=== PATIENT | male | born 1960 | race Caucasian/White ===

== ENCOUNTER 2020-10-17 19:52 | Inpatient (IN) | payer BC ==
[~2020-10-17] VITALS: Ht 177.8 cm; Wt 95.3 kg
--- NOTE | 2020-10-17 20:22 | NUR ---
assessment made. PA at bedside.
--- NOTE | 2020-10-17 20:23 | NUR ---
patient went to bathroom with steady gait.
[2020-10-17] MEDS ORDERED: OMEP-110 PO (20:30)
[2020-10-17] MEDS ORDERED: METF500T17 PO (20:30)
[2020-10-17] MEDS ORDERED: ENAL20TA9 PO (20:30)
[2020-10-17] MEDS ORDERED: SITA25TA PO (20:30)
--- NOTE | 2020-10-17 20:31 | NUR ---
received patient insulin was stopped. D5 1/2 NS @ 150 ml/ hr. blood drawn.
--- NOTE | 2020-10-17 20:51 | NUR ---
sandwich provided. D5 LR with 40 k @ 250 ml/ hr started. cleaner laboratory equipment at bedside for more blood draw.
[2020-10-17] MEDS ORDERED: SODIUM CHLORIDE FLUSH 10ML SYR IVF ONE (21:00)
[2020-10-17] MEDS ORDERED: POTASSIUM CHLORIDE 40 MEQ in D5%-LACTATED RINGERS 1,000 ML IV SCH (21:00)
[2020-10-17 21:14] LABS: PH, VENOUS 7.179 pH (7.320-7.420)
[2020-10-17 21:19] LABS: BASOPHILS % (AUTO) 1 % (0-1); EOSINOPHILS % (AUTO) 3 % (1-7); LYMPHOCYTES % (AUTO) 18 % (22-44); MEAN CORPUSCULAR HEMOGLOBIN 30.7 pg (27.5-34.5); MEAN CORPUSCULAR HGB CONC 33.6 g/dL (33.2-36.2); MEAN PLATELET VOLUME 10.2 fL (7.4-10.4); MONOCYTES % (AUTO) 8 % (2-9); NEUTROPHILS % (AUTO) 71 % (42-75); RED CELL DISTRIBUTION WIDTH 13.5 % (9.4-14.8)
[2020-10-17 21:23] LABS: ALANINE AMINOTRANSFERASE 34 U/L (12-78); ALBUMIN 3.7 g/dL (3.4-5.0); ANION GAP 14 mmol/L (5-15); CALCIUM 9.7 mg/dL (8.5-10.1); CHLORIDE 112 mmol/L (98-107); CREATININE 1.02 mg/dL (0.7-1.3)
[2020-10-17 21:25] LABS: ALKALINE PHOSPHATASE 116 U/L (45-117); BILIRUBIN,TOTAL 0.4 mg/dL (0.2-1.0); TOTAL PROTEIN 7.8 g/dL (6.4-8.2)
[2020-10-17 21:38] LABS: PLATELET COUNT 159 x10^3/uL (130-400)
[2020-10-17 21:39] LABS: MD NO
--- NOTE | 2020-10-17 21:44 | NUR ---
patient went to bathroom with steady gait.
--- NOTE | 2020-10-17 21:44 | NUR ---
FS 135 mg /dl
[2020-10-17] MEDS ORDERED: EMPA25TA PO (21:50)
[2020-10-17 21:56] LABS: ACETONE, SERUM Large (80mg/dL) (Negative)
[2020-10-17] MEDS ORDERED: REGULAR INSULIN 100 UNITS in SODIUM CHLORIDE 0.9% 99 ML IV PRN ×3 (22:00→23:45)
[2020-10-17] MEDS ORDERED: KETOROLAC 30 MG/1 ML ONE (22:28)
[2020-10-17] MEDS ORDERED: ACETAMINOPHEN 325 MG TABLET ONE (22:28)
[2020-10-17] MEDS ORDERED: ACETAMINOPHEN 325 MG TABLET PO ONE (22:30)
[2020-10-17] MEDS ORDERED: GLUCAGON 1 MG IM PRN (22:30)
[2020-10-17] MEDS ORDERED: DOCUSATE 100 MG CAPSULE PO PRN (22:30)
[2020-10-17] MEDS ORDERED: LABETALOL 5MG/ML, 20ML IVPush PRN (22:30)
[2020-10-17] MEDS ORDERED: DEXTROSE 4 GM TAB.CHEW PO PRN (22:30)
[2020-10-17] MEDS: HEPARIN 5,000 UNITS/ML, 1ML SQ SCH (22:30)
[2020-10-17] MEDS ORDERED: DEXTROSE 50%, 50ML SYRINGE IVPush PRN (22:30)
[2020-10-17] MEDS ORDERED: D5%-0.45NACL+KCL 20MEQ 1,000 ML IV SCH (22:30)
[2020-10-17] MEDS ORDERED: KETOROLAC 30 MG/1 ML IVPush ONE (22:30)
[2020-10-17] MEDS ORDERED: ONDANSETRON 2MG/ML, 2ML IVPush PRN (22:30)
--- NOTE | 2020-10-17 22:33 | NUR ---
patient medicated for headache and leg pain.
--- NOTE | 2020-10-17 23:30 | NUR ---
bed assigned. report to REYNALDO Zapata. transported to CCU.
[2020-10-18 01:00] VITALS: BP 137/74
[2020-10-18 04:47] LABS: BASOPHILS % (AUTO) 1 % (0-1); EOSINOPHILS % (AUTO) 7 % (1-7); LYMPHOCYTES % (AUTO) 29 % (22-44); MEAN CORPUSCULAR HEMOGLOBIN 30.8 pg (27.5-34.5); MEAN CORPUSCULAR HGB CONC 33.8 g/dL (33.2-36.2); MEAN PLATELET VOLUME 9.9 fL (7.4-10.4); MONOCYTES % (AUTO) 12 % (2-9); NEUTROPHILS % (AUTO) 51 % (42-75); PLATELET COUNT 169 x10^3/uL (130-400); RED BLOOD COUNT 4.51 x10^6/uL (4.38-5.82); RED CELL DISTRIBUTION WIDTH 13.5 % (9.4-14.8)
[2020-10-18 04:56] LABS: ANION GAP 9 mmol/L (5-15); CALCIUM 9.7 mg/dL (8.5-10.1); CHLORIDE 117 mmol/L (98-107); CREATININE 0.97 mg/dL (0.7-1.3); MD NO
[2020-10-18] MEDS: HEPARIN 5,000 UNITS/ML, 1ML SQ SCH ×3 (06:19→22:30)
[2020-10-18] MEDS ORDERED: SODIUM PHOSPHATE 10 MMOL in SODIUM CHLORIDE 0.9% 500 ML IV ONE (06:30)
[2020-10-18] MEDS ORDERED: MAGNESIUM SULFATE PMX 2GM/50ML 50 ML IV ONE (06:30)
[2020-10-18] MEDS: ACETAMINOPHEN 325 MG TABLET PO PRN (08:07)
[2020-10-18] MEDS: OMEPRAZOLE 20 MG CAPSULE.DR PO SCH (08:07)
[2020-10-18] MEDS ORDERED: ENALAPRIL 20MG TABLET PO SCH (09:00)
[2020-10-18] MEDS ORDERED: SODIUM CHLORIDE FLUSH 10ML SYR IVF SCH (09:00)
[2020-10-18 09:44] LABS: ANION GAP 8 mmol/L (5-15); CALCIUM 9.1 mg/dL (8.5-10.1); CHLORIDE 118 mmol/L (98-107)
[2020-10-18 13:12] LABS: ANION GAP 8 mmol/L (5-15); CALCIUM 8.6 mg/dL (8.5-10.1); CHLORIDE 120 mmol/L (98-107); CREATININE 0.78 mg/dL (0.7-1.3)
[2020-10-18] MEDS ORDERED: GLUCAGON 1 MG IM PRN (13:30)
[2020-10-18] MEDS ORDERED: DEXTROSE 50%, 50ML SYRINGE IVPush PRN (13:30)
[2020-10-18] MEDS ORDERED: DEXTROSE 4 GM TAB.CHEW PO PRN (13:30)
[2020-10-18] MEDS: INSULIN LISPRO 100 UNITS/ML, PEN SQ-INSULIN SCH ×2 (15:47→21:33)
[2020-10-18] MEDS ORDERED: ASPIRIN 325 MG TABLET ONE (16:04)
[2020-10-18 16:54] LABS: ANION GAP 9 mmol/L (5-15); CALCIUM 8.2 mg/dL (8.5-10.1); CHLORIDE 118 mmol/L (98-107); CREATININE 0.81 mg/dL (0.7-1.3)
[2020-10-18] MEDS: SODIUM CHLORIDE FLUSH 10ML SYR IVF SCH (21:00)
[2020-10-18 21:07] VITALS: BP 143/89
[2020-10-18] MEDS: INSULIN GLARGINE 100 UNITS/ML, PEN SQ-INSULIN SCH (21:32)
[2020-10-18] MEDS ORDERED: D5%-0.45NACL+KCL 20MEQ 1,000 ML IV SCH (22:30)
[2020-10-19] MEDS: ACETAMINOPHEN 325 MG TABLET PO PRN ×2 (00:04→07:53)
[2020-10-19 05:37] LABS: BASOPHILS % (AUTO) 1 % (0-1); EOSINOPHILS % (AUTO) 11 % (1-7); LYMPHOCYTES % (AUTO) 32 % (22-44); MEAN CORPUSCULAR HEMOGLOBIN 30.7 pg (27.5-34.5); MEAN CORPUSCULAR HGB CONC 34.1 g/dL (33.2-36.2); MEAN PLATELET VOLUME 9.5 fL (7.4-10.4); MONOCYTES % (AUTO) 10 % (2-9); NEUTROPHILS % (AUTO) 47 % (42-75); PLATELET COUNT 149 x10^3/uL (130-400); RED BLOOD COUNT 4.41 x10^6/uL (4.38-5.82)
[2020-10-19 05:42] LABS: ANION GAP 7 mmol/L (5-15); CALCIUM 8.8 mg/dL (8.5-10.1); CHLORIDE 116 mmol/L (98-107)
[2020-10-19 05:45] LABS: CREATININE 0.83 mg/dL (0.7-1.3)
[2020-10-19 05:50] LABS: MD NO
[2020-10-19] MEDS: HEPARIN 5,000 UNITS/ML, 1ML SQ SCH ×3 (05:54→21:45)
[2020-10-19] MEDS: INSULIN LISPRO 100 UNITS/ML, PEN SQ-INSULIN SCH ×4 (07:00→21:42)
[2020-10-19 07:48] VITALS: BP 139/85
[2020-10-19] MEDS: OMEPRAZOLE 20 MG CAPSULE.DR PO SCH (08:08)
[2020-10-19] MEDS: ENALAPRIL 10 MG TABLET PO SCH (08:08)
[2020-10-19] MEDS: SODIUM CHLORIDE FLUSH 10ML SYR IVF SCH ×2 (08:09→19:51)
[2020-10-19] MEDS: BUTALB/APAP/CAFFEINE 50MG/325MG/40MG PO PRN ×2 (11:57→19:51)
[2020-10-19 13:09] VITALS: BP 156/80
[2020-10-19 19:02] VITALS: BP 149/91
[2020-10-19] MEDS ORDERED: TEMAZEPAM 15 MG CAPSULE PO SCH (21:00)
[2020-10-19] MEDS: INSULIN GLARGINE 100 UNITS/ML, PEN SQ-INSULIN SCH (21:42)
[2020-10-19] MEDS ORDERED: INSU100I11 SQ-INSULIN ×2 (22:49)
[2020-10-19] MEDS ORDERED: INSU100I13 SQ-INSULIN ×2 (22:49)
[2020-10-20 01:25] VITALS: BP 150/98
[2020-10-20 04:13] LABS: ANION GAP 8 mmol/L (5-15); CALCIUM 8.5 mg/dL (8.5-10.1); CHLORIDE 113 mmol/L (98-107); CHOLESTEROL, TOTAL 203 mg/dL (140-239); CREATININE 0.77 mg/dL (0.7-1.3)
[2020-10-20 04:16] LABS: CHOL/HDL RATIO 5.3; HDL CHOL % 19 % (26-37); HDL CHOLESTEROL (DIRECT) 38 mg/dL (40-60); LDL CHOLESTEROL,CALCULATED 117 mg/dL (54-169); LDL/HDL RATIO 3.1 (0.5-3.0); TRIGLYCERIDES 238 mg/dL (50-200); VLDL CHOLESTEROL 48 mg/dL (0-25)
[2020-10-20] MEDS: HEPARIN 5,000 UNITS/ML, 1ML SQ SCH ×2 (06:18→14:26)
[2020-10-20] MEDS: BUTALB/APAP/CAFFEINE 50MG/325MG/40MG PO PRN (06:19)
[2020-10-20] MEDS: INSULIN LISPRO 100 UNITS/ML, PEN SQ-INSULIN SCH ×3 (07:19→16:00)
[2020-10-20] MEDS ORDERED: MAGNESIUM SULFATE PMX 2GM/50ML 50 ML IV ONE (08:00)
[2020-10-20] MEDS ORDERED: POTASSIUM CHLORIDE 40 MEQ in SODIUM CHLORIDE 0.9% 500 ML IV ONE (08:00)
[2020-10-20] MEDS: OMEPRAZOLE 20 MG CAPSULE.DR PO SCH (08:37)
[2020-10-20] MEDS: ENALAPRIL 10 MG TABLET PO SCH (08:38)
[2020-10-20] MEDS: SODIUM CHLORIDE FLUSH 10ML SYR IVF SCH (08:39)
[2020-10-20] MEDS ORDERED: INSULIN GLARGINE 100 UNITS/ML, PEN SQ-INSULIN SCH ×2 (09:00)
[2020-10-20 12:53] VITALS: BP 145/82
[2020-10-20] MEDS ORDERED: INSU100I13 SQ-INSULIN ×3 (15:44→15:51)
[2020-10-20] MEDS ORDERED: INSU100I11 SQ-INSULIN ×3 (15:51→16:37)
[2020-10-20] MEDS ORDERED: ENAL20TA9 PO (15:52)
== END 2020-10-20 17:23 | disposition home or self-care (01) | DRG 639 ==
LOC: ED 23:38 → CCU 23:50 → 3N 10-18 18:53
PROVIDERS: ADMIT Family Medicine; ATTEND Internal Medicine
DX: E11.10 Type 2 diabetes mellitus with ketoacidosis without coma (principal); E83.39 Other disorders of phosphorus metabolism; E83.42 Hypomagnesemia; E87.6 Hypokalemia; G47.00 Insomnia, unspecified; I10 Essential (primary) hypertension; Z20.822 Contact with and (suspected) exposure to COVID-19; K21.9 Gastro-esophageal reflux disease without esophagitis; M51.26 Other intervertebral disc displacement, lumbar region
CPT/HCPCS: 36415; 84145; 96374; 96375; 99291; J7121; 72148; 80048; 80053; 80061; 82010; 82803; 82962; 83036; 83605; 83690; 83735; 83930; 84100; 84443; 85025; G0378; J1644; J1815; J1885; J3480; J3475; J7040